=== PATIENT | female | born 1980 | race African-American/Black ===

== ENCOUNTER 2016-12-26 14:46 | Emergency (ER) | payer MEDICAID, OTHER ==
[~2016-12-26] VITALS: Ht 162.6 cm; Wt 73.9 kg
[2016-12-26 16:15] LABS: Albumin 4.2 g/dL (3.4-5.0); Alkaline Phosphatase 65 U/L (45-117); Anion Gap 8 (5-15); Aspartate Aminotransferase 31 U/L (15-37); BUN/Creatinine Ratio 15.6; Bilirubin, Total 0.5 mg/dL (0.2-1.0); Blood Urea Nitrogen 10 mg/dL (7-18); Calcium 9.1 mg/dL (8.5-10.1); Carbon Dioxide 26 mmol/L (21-32); Chloride 102 mmol/L (98-107); GFR African American 136 mL/min; GFR Non-African American 112 mL/min; Glucose 99 mg/dL (74-106); Magnesium 2.1 mg/dL (1.6-2.6); Potassium 3.5 mmol/L (3.5-5.1); Sodium 136 mmol/L (136-145); Total Protein 7.3 g/dL (6.4-8.2)
[2016-12-26 16:40] LABS: Basophils # (auto) 0 uL; Basophils % (auto) 0.6 % (0.0-2.0); CONDITION Y; Eosinophils # (auto) 0 uL; Eosinophils % (auto) 0.6 % (0.0-7.0); Hematocrit 37.4 % (36.0-46.0); Hemoglobin 12.5 g/dL (12.2-16.2); Lymphocytes # (auto) 1.6 uL; Lymphocytes % (auto) 39.1 % (10.0-50.0); Mean Corpuscular Hemoglobin 30.2 pg (28.0-32.0); Mean Corpuscular Hgb Conc. 33.4 g/dL (32.0-36.0); Mean Corpuscular Volume 90.4 fL (80.0-100.0); Mean Platelet Volume 8.9 fL (7.4-10.4); Monocytes # (auto) 0.3 uL; Monocytes % (auto) 7.3 % (0.0-12.0); Neutrophils # (auto) 2.1 uL; Neutrophils % (auto) 52.4 % (37.0-80.0); Platelet Count (auto) 260 10^3/uL (140-450); Red Cell Distribution Width 13.9 % (11.6-16.0); White Blood Cell 4.1 10^3/uL (4.4-10.8)
[2016-12-26 21:43] LABS: Urine Bilirubin Negative (Negative); Urine Blood Negative /uL (Negative); Urine Color Yellow (Yellow); Urine Glucose Normal (Normal); Urine Nitrite Negative (Negative); Urine RBC <1 /hpf (0 - 4); Urine Squamous Epithelial Cell FEW /hpf (<5); Urine Urobilinogen Normal (Negative)
[2016-12-26 22:02] LABS: Urine Ketone 1+ (Negative)
[2016-12-26] MEDS ORDERED: LORazepam 0.5 MG TAB PO ONE (22:30)
[2016-12-26] MEDS ORDERED: cloNIDine HCL 0.1 MG TAB PO ONE (22:30)
[2016-12-27 00:06] VITALS: BP 137/73
== END 2016-12-27 00:19 | disposition home or self-care (01) ==
LOC: ER 14:46
DX: F41.9 Anxiety disorder, unspecified (principal); I10 Essential (primary) hypertension
CPT/HCPCS: 36415; 71010; 80053; 81001; 83735; 84484; 85025; 93005

== ENCOUNTER 2018-11-05 10:30 | Inpatient (IN) | payer BC ==
[~2018-11-05] VITALS: Ht 160 cm; Wt 71.6 kg
[2018-11-05 11:06] LABS: Urine Bacteria FEW /hpf (None Seen); Urine Blood TRACE /uL (Negative); Urine Specific Gravity 1.008 (1.001-1.035); Urine WBC 2 /hpf (0 - 5)
[2018-11-05 11:28] LABS: Basophils # (auto) 0.1 uL; Basophils % (auto) 1.4 % (0.0-2.0); Eosinophils # (auto) 0 uL; Hematocrit 35.4 % (36.0-46.0); Hemoglobin 11.7 g/dL (12.2-16.2); Lymphocytes # (auto) 1.3 uL; Lymphocytes % (auto) 34.9 % (10.0-50.0); Mean Corpuscular Hemoglobin 30.8 pg (28.0-32.0); Mean Corpuscular Hgb Conc. 33.1 g/dL (32.0-36.0); Mean Corpuscular Volume 93.1 fL (80.0-100.0); Monocytes # (auto) 0.2 uL; Monocytes % (auto) 5.6 % (0.0-12.0); Neutrophils # (auto) 2.1 uL; Neutrophils % (auto) 57.1 % (37.0-80.0); Platelet Count (auto) 267 10^3/uL (140-450); Red Cell Distribution Width 13.2 % (11.8-14.3); White Blood Cell 3.7 10^3/uL (4.4-10.8)
[2018-11-05 11:48] LABS: Albumin 3.6 g/dL (3.4-5.0); Potassium 3.9 mmol/L (3.5-5.1)
[2018-11-05 11:51] LABS: BUN/Creatinine Ratio 16.7; Bilirubin, Total 0.4 mg/dL (0.2-1.0); Total Protein 6.9 g/dL (6.4-8.2)
[2018-11-05] MEDS ORDERED: MORPHINE SULFATE 4 MG/ML SYR/VIAL IV ONE (13:15)
[2018-11-05] MEDS ORDERED: ONDANSETRON HCL 4 MG/2 ML VIAL IV ONE (13:15)
[2018-11-05] MEDS ORDERED: HYDROcodone-ACET 5/325MG TAB PO PRN (18:00)
[2018-11-05] MEDS ORDERED: ONDANSETRON HCL 4 MG/2 ML VIAL IV PRN (18:00)
[2018-11-05] MEDS ORDERED: MORPHINE SULF INJ 2 MG/ML SYRINGE 1ML IV PRN (18:00)
[2018-11-05] MEDS ORDERED: ACETAMINOPHEN 500 MG TAB PO PRN (18:00)
[2018-11-05] MEDS ORDERED: cefTRIAXone 1GM/50ML D5W 50 ML IV SCH (18:15)
--- NOTE | 2018-11-05 18:30 | NUR ---
ASSUMED CARE OF PATIENT PATIENT IS AWAKE, ALERT, ORIENTED X4. RESPIRATIONS EVEN AND UNLABORED. NO S/S OF DISTRESS, SOB, OR PAIN. ORIENTED PATIENT TO ROOM, UNIT, POLICIES, AND PROCEDURES. DISCUSSED POC WITH PATIENT. PATIENT VERBALIZED UNDERSTANDING. BED IS IN LOWEST POSITION, SIDE RAILS UP X2, AND CALL LIGHT WITHIN REACH. WILL CONTINUE TO MONITOR Q1 HOUR AND PRN.
--- NOTE | 2018-11-05 18:40 | NUR ---
PATIENT OFF UNIT LEFT WITH 2 STAFF MEMBERS TO ULTRASOUND PROCEDURE
--- NOTE | 2018-11-05 19:20 | NUR ---
END OF SHIFT PATIENT RESTING IN BED. NO S/S OF DISTRESS, SOB, OR PAIN. BED IS IN LOWEST POSITION, SIDE RAILS UP X2, AND CALL LIGHT WITHIN REACH. WILL ENDORSE CARE TO SLIP COVER SEAMSTRESS TO R.N
--- NOTE | 2018-11-05 19:30 | NUR ---
OPENING SHIFT NOTE RECEIVED REPORT FROM DAYSHIFT RN. PATIENT RESTING COMFORTABLY IN BED WITH VISITOR AT BEDSIDE. NO S/S OF DISTRESS OR SOB. NO PAIN NOTED OR REPORTED. PATIENT A/O X4, AMBULATORY. UPDATED PATIENT ON POC, VERBALIZED UNDERSTANDING. BED LOCKED IN LOW POSITION, CALL LIGHT WITHIN REACH. WILL CONTINUE TO MONITOR PATIENT Q1HR AND PRN.
[2018-11-05] MEDS: cefTRIAXone 1GM/50ML D5W 50 ML IV SCH (20:04)
[2018-11-05] MEDS: SODIUM CHLORIDE 0.9% 1,000 ML IV SCH (20:04)
[2018-11-05 22:00] VITALS: BP 132/82
[2018-11-05] MEDS ORDERED: METO25TA5 PO (23:44)
[2018-11-05] MEDS ORDERED: LISI-646 PO (23:44)
[2018-11-06] MEDS: SODIUM CHLORIDE 0.9% 1,000 ML IV SCH ×2 (04:21→14:58)
[2018-11-06 05:00] VITALS: BP 140/97
[2018-11-06 06:54] LABS: Basophils # (auto) 0.1 uL; Basophils % (auto) 1.6 % (0.0-2.0); Eosinophils # (auto) 0.1 uL; Eosinophils % (auto) 1.7 % (0.0-7.0); Hematocrit 36.9 % (36.0-46.0); Hemoglobin 12.2 g/dL (12.2-16.2); Lymphocytes # (auto) 1.6 uL; Lymphocytes % (auto) 49.9 % (10.0-50.0); Mean Corpuscular Hemoglobin 30.7 pg (28.0-32.0); Monocytes # (auto) 0.2 uL; Monocytes % (auto) 7.4 % (0.0-12.0); Neutrophils # (auto) 1.3 uL; Neutrophils % (auto) 39.4 % (37.0-80.0); Nucleated Red Blood Cells % 0.1 %; Platelet Count (auto) 263 10^3/uL (140-450); Red Blood Cells 3.97 10^6/uL (4.0-5.20); Red Cell Distribution Width 12.9 % (11.8-14.3); White Blood Cell 3.3 10^3/uL (4.4-10.8)
[2018-11-06 07:03] LABS: Albumin 3.1 g/dL (3.4-5.0); Potassium 3.9 mmol/L (3.5-5.1)
[2018-11-06 07:09] LABS: BUN/Creatinine Ratio 18.8; Bilirubin, Total 0.3 mg/dL (0.2-1.0); Total Protein 6.6 g/dL (6.4-8.2)
--- NOTE | 2018-11-06 08:00 | NUR ---
Opening Shift Note Assumed care of patient, awake, alert and oriented X4. No S/S of distress/SOB or pain. IV to left forearm, 20 gauge, patent and infusing 0.9% NS @ 100 ml/hr. Instructed on POC and to call for assist PRN, verbalized understanding. Bed locked, in lowest position, call light within reach, will continue to monitor for changes Q1hr and PRN.
--- NOTE | 2018-11-06 08:10 | NUR ---
Reported by [employer] B/P 172/103. Paged hospitalist sales commissions analyst, Boom Chaves N.P., awaiting return call.
--- NOTE | 2018-11-06 08:30 | NUR ---
B/P Repeat page placed to on-call hospitalist, Boom Chaves N.P, second page, awaiting return call. B/P remains 168/105.
--- NOTE | 2018-11-06 08:50 | NUR ---
One time order received from Dr Gerri Phillips for Metoprolol.
[2018-11-06 09:00] VITALS: BP 172/103
[2018-11-06] MEDS ORDERED: METOPROLOL TARTRATE 25 MG TAB PO ONE (09:00)
[2018-11-06] MEDS: cefTRIAXone 1GM/50ML D5W 50 ML IV SCH (12:00)
[2018-11-06 13:00] VITALS: BP 137/92
--- NOTE | 2018-11-06 13:21 | NUR ---
OBGYN Dr Hdz at bedside for OBGYN consult, no new orders received at this time. Plan of care discussed with patient, verbalized understanding.
[2018-11-06 17:04] VITALS: BP 135/90
--- NOTE | 2018-11-06 19:17 | NUR ---
Care endorsed to RAOUL Cruz, night nurse.
[2018-11-06 20:25] VITALS: BP 148/102
--- NOTE | 2018-11-06 20:50 | NUR ---
Discharge instructions given as ordered. Encourage to follow up with PMD as instructed. All questions and concerns addressed. Patient verbalized understanding. Medication reconciliation form completed and copy given to patient. IV removed with catheter intact, pressure dressing applied. Patient ambulatory to vehicle outside ER with all personal belongings, accompanied by staff. No distress noted at time of departure.
== END 2018-11-06 20:51 | disposition home or self-care (01) | DRG 760 ==
LOC: ER 10:30 → OVERFLOW 17:53 → EAST 18:37
PROVIDERS: ADMIT Nurse Practitioner Acute Care; ATTEND Internal Medicine
DX: N83.209 Unspecified ovarian cyst, unspecified side (principal); N39.0 Urinary tract infection, site not specified; E66.9 Obesity, unspecified; F17.210 Nicotine dependence, cigarettes, uncomplicated; F41.9 Anxiety disorder, unspecified; D64.9 Anemia, unspecified; I10 Essential (primary) hypertension; Z82.0 Family history of epilepsy and other diseases of the nervous system; Z82.49 Family history of ischemic heart disease and other diseases of the circulatory system; Z90.711 Acquired absence of uterus with remaining cervical stump; Z83.3 Family history of diabetes mellitus; Z68.28 Body mass index [BMI] 28.0-28.9, adult
CPT/HCPCS: 36415; 74176; 74177; 76856; 80053; 80061; 81001; 83690; 84443; 85025; 94761; 96365; G0378; J0696

== ENCOUNTER → 2020-12-31 | Outpatient (CLI) | payer OTHER ==
[~2020-12-31] MED LIST: LISI20TA28 PO; METO25TA5 PO
== END | disposition home or self-care (01) ==
LOC: Rad HDHVI 13:51
PROVIDERS: ATTEND Internal Medicine Cardiovascular Disease
DX: R00.2 Palpitations (principal); R42 Dizziness and giddiness
CPT/HCPCS: 93306

== ENCOUNTER → 2021-01-13 | Outpatient (CLI) | payer OTHER ==
[~2021-01-13] VITALS: Ht 162.6 cm; Wt 77.1 kg
== END | disposition home or self-care (01) ==
LOC: Rad HDHVI 14:01
PROVIDERS: ATTEND Internal Medicine Cardiovascular Disease
DX: R00.2 Palpitations (principal); I10 Essential (primary) hypertension; R07.9 Chest pain, unspecified; F17.210 Nicotine dependence, cigarettes, uncomplicated; R42 Dizziness and giddiness; Z82.49 Family history of ischemic heart disease and other diseases of the circulatory system
CPT/HCPCS: 78452; 93017; 96374; A9500

== ENCOUNTER 2024-03-16 03:53 | Emergency (ER) | payer MEDICAID, OTHER ==
[~2024-03-16] VITALS: Ht 162.6 cm; Wt 77.3 kg
[~2024-03-16 03:53] MED LIST changes: -LISI20TA28 PO; +LISI20TA56 PO
[2024-03-16 06:50] VITALS: PULSE 74; RESP 14; O2SAT 97
[2024-03-16] MEDS: ALBUTEROL SULF 2.5 MG/0.5ML(0.5%) NEB SOLN NEB ONE (07:09)
[2024-03-16 07:40] LABS: Alanine Aminotransferase 39 U/L (7-40); Albumin 4.7 g/dL (3.2-4.8); Alkaline Phosphatase 57 U/L (46-116); Anion Gap 6 (5-15); Aspartate Aminotransferase 29 U/L (13-40); BUN/Creatinine Ratio 13.6 (10.0-20.0); Bilirubin, Total 0.6 mg/dL (0.2-1.0); Blood Urea Nitrogen 9 mg/dL (9-23); Calcium 9.7 mg/dL (8.7-10.4); Carbon Dioxide 27 mmol/L (20-30); Chloride 104 mmol/L (98-107); Glucose 97 mg/dL (74-106); Sodium 137 mmol/L (136-145); Total Protein 7.4 g/dL (5.7-8.2)
[2024-03-16 07:50] LABS: Basophils # (auto) 0 10 ^3/uL (0-0.2); Basophils % (auto) 0.8 % (0.0-2.0); Eosinophils # (auto) 0.1 10 ^3/uL (0-0.8); Eosinophils % (auto) 1.5 % (0.0-7.0); Hematocrit 36.6 % (36.0-46.0); Hemoglobin 12.8 g/dL (12.2-16.2); Lymphocytes # (auto) 2.8 10 ^3/uL (0.4-5.4); Lymphocytes % (auto) 54.7 % (10.0-50.0); Mean Corpuscular Hemoglobin 32.3 pg (28.0-32.0); Mean Corpuscular Volume 92.3 fL (80.0-100.0); Monocytes # (auto) 0.4 10 ^3/uL (0-1.3); Monocytes % (auto) 8.8 % (0.0-12.0); Neutrophils # (auto) 1.7 10 ^3/uL (1.6-8.6); Neutrophils % (auto) 34.2 % (37.0-80.0); Nucleated Red Blood Cells % 0.2 %; Platelet Count (auto) 242 10^3/uL (140-450); Red Blood Cells 3.96 10^6/uL (4.0-5.20); White Blood Cell 5.1 10^3/uL (4.4-10.8)
[2024-03-16 10:08] LABS: COVID19 ANTIGEN SOFIA FIA NEGATIVE (NEGATIVE)
[2024-03-16] MEDS ORDERED: AZITTAB2 PO (10:44)
[2024-03-16] MEDS ORDERED: ALBUAER3 IN (10:45)
[2024-03-16 11:05] VITALS: BP 153/83; PULSE 62; RESP 15; TEMP 97.8; O2SAT 98
== END 2024-03-16 11:06 | disposition home or self-care (01) ==
LOC: ER 03:53
DX: J40 Bronchitis, not specified as acute or chronic (principal); I10 Essential (primary) hypertension; F17.210 Nicotine dependence, cigarettes, uncomplicated; Z90.710 Acquired absence of both cervix and uterus; Z20.822 Contact with and (suspected) exposure to COVID-19
CPT/HCPCS: 36415; 71045; 80053; 84484; 85025; 87426; 93005; 94640